=== PATIENT | female | born 1990 | race Two or more races ===

== ENCOUNTER 2016-12-08 10:31 | Emergency (ER) | payer MEDICAID ==
[~2016-12-08] VITALS: Ht 154.9 cm; Wt 78.5 kg
[~2016-12-08 10:31] MED LIST: COLACE100 MG PO; FERROUS SULFAT325 M1 PO; MOTRIN800 MG PO; NORCO 5-325 TA1 EACH PO
== END 2016-12-08 12:15 | disposition short-term general hospital (02) ==
LOC: ER 10:31
DX: R51 Headache (principal); J32.9 Chronic sinusitis, unspecified; F17.210 Nicotine dependence, cigarettes, uncomplicated
CPT/HCPCS: J1885; J2550

== ENCOUNTER 2016-12-09 19:37 | Emergency (ER) | payer MEDICAID ==
[~2016-12-09] VITALS: Ht 154.9 cm; Wt 78.5 kg
== END 2016-12-09 20:55 | disposition short-term general hospital (02) ==
LOC: ER 19:37
DX: J32.9 Chronic sinusitis, unspecified (principal); Z87.891 Personal history of nicotine dependence